=== PATIENT | female | born 1990 | race Caucasian/White ===

== ENCOUNTER 2017-05-21 13:25 | Outpatient (CLI) ==
[2012-12-28 18:18] VITALS: TEMP 98.7
[2015-12-03 02:49] VITALS: BMI 16.0
[2017-05-21 13:35] LABS: BASOPHILS % (AUTO) 0.5 % (0.0-3.0); EOSINOPHILS # (AUTO) 0.1 K/ul (0.0-0.7); EOSINOPHILS % (AUTO) 1.4 % (0.0-7.0); HEMATOCRIT 38.9 % (37.0-47.0); HEMOGLOBIN 13.4 g/dl (12.0-16.0); IMMATURE GRANULOCYTE % (AUTO) 0.2 % (0.0-5.0); LYMPHOCYTES # (AUTO) 2.8 K/uL (0.60-3.4); LYMPHOCYTES % (AUTO) 32.5 (10.0-50.0); MEAN CORPUSCULAR HEMOGLOBIN 30.2 pg (27.0-31.0); MEAN CORPUSCULAR HGB CONC 34.4 (31.8-35.4); MEAN CORPUSCULAR VOLUME 87.6 fl (81.0-99.0); MONOCYTES # (AUTO) 0.6 K/uL (0.4-2.0); MONOCYTES % (AUTO) 7.1 (0-10); NEUTROPHILS % (AUTO) 58.3; PLATELET COUNT 179 10^3/uL (140-440); RED BLOOD COUNT 4.44 10^6/ul (4.20-5.40); WHITE BLOOD COUNT 8.51 K/ul (4.6-10.2)
[2017-05-21 13:45] LABS: BILIRUBIN,URINE Negative (NEGATIVE); KETONES,URINE Negative (NEGATIVE); LEUKOCYTE ESTERASE ,URINE Negative (NEGATIVE); NITRITE,URINE Negative (NEGATIVE); PH,URINE 5.5 (5-9); PROTEIN,URINE 1+ (NEGATIVE); URINE, BLOOD 3+ (NEGATIVE)
[2017-05-21 13:48] LABS: ADD URINE MICROSCOPIC YES
[2017-05-21 13:54] LABS: BACTERIA,URINE TRACE (NOT PRESENT)
[2017-05-21 14:12] LABS: COCAIN SCREEN,URINE NEGATIVE (NEGATIVE)
[2017-05-21 19:12] LABS: ALBUMIN 4.1 g/dL (3.4-5.0); ALBUMIN/GLOBULIN RATIO 1.41; ANION GAP 14.8; BILIRUBIN,TOTAL 0.45 mg/dL (0.00-1.20); BUN/CREATININE RATIO 11.53; CALCIUM 9.4 mg/dL (8.2-10.2); CREATININE 0.78 mg/dL (0.60-1.30); POTASSIUM 3.8 mmol/L (3.5-5.10)
== END 2017-05-21 13:26 | disposition home or self-care (01) ==
LOC: LAB 13:25
PROVIDERS: ATTEND Nurse Practitioner Family
DX: F41.9 Anxiety disorder, unspecified (principal)
CPT/HCPCS: 36415; 80053; 80306; 81001; 84439; 84443; 85025

== ENCOUNTER 2017-06-23 18:14 | Emergency (ER) ==
[2017-06-23 18:21] VITALS: BP 102/71; TEMP 98.9; BMI 15.3
--- NOTE | 2017-06-23 18:44 | ED.PDOC ---
General Stated Complaint: abdominal pain, dysuria Time Seen by Physician: 18:42 (N,V, D, ABDOMINAL PAIN, FEVER AT THE ONSET ) Mode of Arrival: Walk-In Information Source: Patient Exam Limitations: No limitations Nursing and Triage Documentation Reviewed and Agree: Yes Reviewed sepsis parameters & appropriate labs ordered?: Yes <LATIA PALMER - Last Filed: 06/23/17 18:46> System Inflammatory Response Syndrome: Not Applicable <ALEJANDRO LILLY - Last Filed: 06/23/17 19:47> ED Provider: Dr. ALEJANDRO LILLY Chief Complaint: Abdominal Pain Primary Care Provider: ALEJANDRO LILLY-[facility] Sepsis Protocol: For patient's 13 years and over: Temp is 96.8 and below OR 101 and greater Pulse >90 BPM Resp >20/minute Acutely Altered Mental Status Are patient's symptoms suggestive of a new infection, such as: -Pneumonia -Skin, Soft Tissue -Endocarditis -UTI -Bone, Joint Infection -Implantable Device -Acute Abdominal Infection -Wound Infection -Meningitis -Blood Stream Catheter Infection -Unknown GI Complaint Exam - Abdominal Pain Complaint/Exam Onset: Gradual Duration: 3 DAYS Symptoms Are: Still present Timing: Constant Initial Severity: Moderate Current Severity: Moderate Location of Pain: Diffuse, Suprapubic Character: Reports: Aching Aggravating: Reports: None Alleviating: Reports: None Associated Signs and Symptoms: Reports: Fever, Cough, Back pain, Dysuria, Decreased urine output, Decreased appetite, Decreased activity. Denies: Diaphoresis, Chest pain, Dizziness, Constipation, Blood in stool, Urinary frequency, Vaginal bleeding, Vaginal discharge, Nausea, Vomiting, Diarrhea, Sore throat AAA Risk Factors: Reports: None Cardiac Risk Factors: Reports: None Ectopic Risk Factors: Reports: None Ovarian Torsion Risk Factors: Reports: Reproductive age Surgical Obstruction Risk Factors: Reports: None Related Surgical History: Reports: None Patient Rh Status: Unknown Abdominal Findings: Present: None Differential Diagnoses: Bowel Obstruction, Constipation, Diverticulitis, Gastroenteritis, UTI <LATIA PALMER - Last Filed: 06/23/17 18:46> Review of Systems - Review Of Systems Constitutional: Reports: Chills, Malaise, Weakness Eyes: Reports: No symptoms Ears, Nose, Mouth, Throat: Reports: No symptoms Respiratory: Reports: Cough Cardiac: Reports: No symptoms GI: Reports: Abdominal pain, Diarrhea, Nausea, Vomiting : Reports: Dysuria, Flank pain Musculoskeletal: Reports: No symptoms Skin: Reports: No symptoms Neurological: Reports: No symptoms Endocrine: Reports: No symptoms Hematologic/Lymphatic: Reports: No symptoms All Other Systems: Reviewed and Negative <LATIA PALMER Last Filed: 06/23/17 18:46> Past Medical History - Past Medical History Previously Healthy: Yes Endocrine: Reports: None Cardiovascular: Reports: None Respiratory: Reports: None Hematological: Reports: None Gastrointestinal: Reports: None Genitourinary: Reports: None Neuro/Psych: Reports: None Musculoskeletal: Reports: None Cancer: Reports: None Last Menstrual Period: now - Surgical History General Surgical History: Reports: Unknown - Family History Family History: Reports: Unknown - Social History Smoking Status: Current every day smoker, Light tobacco smoker Hx Substance Use: No Alcohol Screening: Occasionally <LATIA PALMER Last Filed: 06/23/17 18:46> Physical Exam - Physical Exam Appearance: Ill-appearing Ill-appearing: Moderate Pain Distress: Moderate Eyes: KWAME, EOMI, Conjunctiva clear ENT: Ears normal, Nose normal, Oropharynx normal Respiratory: Airway patent, Breath sounds clear, Breath sounds equal, Respirations nonlabored Cardiovascular: RRR, Pulses normal, No rub, No murmur GI/: Tender (DIFFUSE ) Musculoskeletal: Normal strength, ROM intact, No edema, No calf tenderness Skin: Warm, Dry, Normal color Neurological: Sensation intact, Motor intact, Reflexes intact, Cranial nerves intact, Alert, Oriented Psychiatric: Affect appropriate, Mood appropriate <LATIA PALMER Last Filed: 06/23/17 18:46> Interpretation - Radiology Interpretation Radiology Interpretation By: Radiologist Radiology Results: Negative Exam Interpreted: CT Scan <ALEJANDRO LILLY - Last Filed: 06/23/17 19:47> Physician Notification - Case Discussed Physician Notified: [id number] Time of Notification: 18:44 <LATIA PALMER Last Filed: 06/23/17 18:46> Critical Care Note - Critical Care Note Total Time (mins): 0 <LATIA PALMER Last Filed: 06/23/17 18:46> Course - Course Hematology/Chemistry: 06/23/17 18:55 06/23/17 18:55 <ALEJANDRO LILLY - Last Filed: 06/23/17 19:47> - Course Orders, Labs, Meds: Lab Review 06/23/17 06/23/17 06/23/17 18:30 18:30 18:55 WBC 12.13 H RBC 4.67 Hgb 14.0 Hct 40.4 MCV 86.5 MCH 30.0 MCHC 34.7 RDW Coeff of Cindy 12.0 Plt Count 194 Immature Gran % (Auto) 0.2 Neut % (Auto) 83.8 Lymph % (Auto) 9.2 L [place] % (Auto) 6.3 Eos % (Auto) 0.3 Baso % (Auto) 0.2 Immature Gran # (Auto) 0.0 Neut # 10.2 H Lymph # 1.1 [place] # 0.8 Eos # 0.0 Baso # 0.0 Sodium Potassium Chloride Carbon Dioxide Anion Gap BUN Creatinine Estimated GFR (MDRD) BUN/Creatinine Ratio Glucose Calcium Total Bilirubin AST ALT Alkaline Phosphatase Total Protein Albumin Globulin Albumin/Globulin Ratio Urine Color Yellow Urine Clarity Turbid Urine pH 6.0 Ur Specific [place] >=1.030 Urine Protein 1+ Urine Glucose (UA) Negative Urine Ketones Trace Urine Blood 2+ Urine Nitrite Negative Urine Bilirubin 1+ Urine Urobilinogen 0.2 Ur Leukocyte Esterase Negative Ur Squamous Epith Cells Not present Amorphous Sediment 4+ Urine Bacteria 3+ Urine Test Negative Influenza A (Rapid) Influenza B (Rapid) 06/23/17 06/23/17 18:55 19:10 WBC RBC Hgb Hct MCV MCH MCHC RDW Coeff of Cindy Plt Count Immature Gran % (Auto) Neut % (Auto) Lymph % (Auto) [place] % (Auto) Eos % (Auto) Baso % (Auto) Immature Gran # (Auto) Neut # Lymph # [place] # Eos # Baso # Sodium 140 Potassium 3.5 Chloride 105 Carbon Dioxide 27 Anion Gap 11.5 BUN 7 Creatinine 0.75 Estimated GFR (MDRD) 92.00 BUN/Creatinine Ratio 9.33 Glucose 111 H Calcium 9.1 Total Bilirubin < 0.3 AST 13 L ALT 11 L Alkaline Phosphatase 63 Total Protein 7.0 Albumin 3.5 Globulin 3.5 Albumin/Globulin Ratio 1.00 Urine Color Urine Clarity Urine pH Ur Specific [place] Urine Protein Urine Glucose (UA) Urine Ketones Urine Blood Urine Nitrite Urine Bilirubin Urine Urobilinogen Ur Leukocyte Esterase Ur Squamous Epith Cells Amorphous Sediment Urine Bacteria Urine Test Influenza A (Rapid) Negative by naat Influenza B (Rapid) Negative by naat Orders Category Date Time Status CBC W/ AUTO DIFF Stat LAB 06/23/17 18:55 Completed COMPREHENSIVE METABOLIC PANEL Stat LAB 06/23/17 18:55 Completed RAPID FLU A/B Stat LAB 06/23/17 19:10 Completed STREP SCREEN Stat LAB 06/23/17 19:10 Ordered URINALYSIS C & S IF INDICATED Stat LAB 06/23/17 18:30 Completed URINE CULTURE Stat LAB 06/23/17 18:30 Received URINE Stat LAB 06/23/17 18:30 Completed Ceftriaxone Sodium [Rocephin] MEDS 06/23/17 19:45 Stat 1 gm IM ONCE STA Ketorolac Tromethamine [Toradol] MEDS 06/23/17 19:45 Stat 30 mg IM ONCE STA Lidocaine HCl/Pf [Lidocaine HCl 1% Sdv] MEDS 06/23/17 19:45 Stat 5 ml SUBCUT ONCE STA CT ABDOMEN/PELVIS WO CONTRAST Stat RADS 06/23/17 18:[address] CHEST W/O CONTRAST Stat RADS 06/23/17 18:46 Completed Medications Generic Name Dose Route Start Last Admin Trade Name Freq PRN Reason Stop Dose Admin Ceftriaxone Sodium 1 gm 06/23/17 19:45 Rocephin IM 06/23/17 19:46 ONCE STA Ketorolac Tromethamine 30 mg 06/23/17 19:45 Toradol IM 06/23/17 19:46 ONCE STA Lidocaine HCl 5 ml 06/23/17 19:45 Lidocaine Hcl 1% Sdv SUBCUT 06/23/17 19:46 ONCE STA Vital Signs: Temp Pulse Resp BP Pulse Ox 06/23/17 18:15 98.9 F 128 H 20 102/71 96 Departure - Departure Pt referred to PMD for follow-up: Yes Disposition Discussed With: Patient <LATIA PALMER - Last Filed: 06/23/17 18:46> - Departure Time of Disposition: 19:46 <ALEJANDRO LILLY - Last Filed: 06/23/17 19:47> - Departure Disposition: HOME SELF-CARE Discharge Problem: Abdominal pain UTI (urinary tract infection) Qualifiers: Urinary tract infection type: acute cystitis Hematuria presence: with hematuria Qualified Code(s): N30.01 - Acute cystitis with hematuria Instructions: Abdominal Pain (ED) Condition: Good Additional Instructions: Please call your Family Physician as soon as possible to schedule a follow-up appointment.Please call your Family Physician as soon as possible to schedule a follow-up appointment. Increase Hydration Probiotics Prescriptions: Sulfamethoxazole/Trimethoprim [Bactrim Ds 800/160 mg] 1 tab PO Q12HR #14 tablet Allergies/Adverse Reactions: Allergies No Known Drug Allergies Adverse Reaction (Verified 06/23/17 18:22) Home Medications: Ambulatory Orders Sulfamethoxazole/Trimethoprim [Bactrim Ds 800/160 mg] 1 tab PO Q12HR #14 tablet 06/23/17
--- NOTE | 2017-06-23 19:22 | CT ---
EXAM: CT abdomen pelvis without contrast HISTORY: Evaluate for pyelonephritis COMPARISON: None TECHNIQUE: Serial axial images of the abdomen pelvis were performed from the lung bases through the inferior pelvis without contrast. These were viewed in multiple planes. FINDINGS: The lung bases are clear. Evaluation is limited due to lack of contrast. There is no hydronephrosis or hydroureter. Evaluatio n of the kidneys is limited due to lack of contrast. Urinary bladder contains minimal amount of urin e. The liver that is unremarkable. The spleen is normal. The gallbladder is minimally distended. The adrenal glands are unremarkable. The pancreas is unremarkable. Stomach is minimally distended. Evaluation of the abdomen and pelvis of the bowel is limited due to lack of intra-abdominal fat. Sma ll bowel is unremarkable as visualized. The appendix is normal. The colon is unremarkable. The carlos meera is unremarkable. There is no free fluid or lymphadenopathy. The osseous structures are unremark able. IMPRESSION: The Very limited evaluation due to lack of intra-abdominal fat and IV contrast. 1. No evidence of pyelonephritis or obstructive uropathy. 2. The appendix contains gas and is normal in appearance.
--- NOTE | 2017-06-23 19:25 | CT ---
EXAM: CT chest without contrast HISTORY: Cough COMPARISON: None TECHNIQUE: Serial axial images of the chest were obtained from the lung apices to the upper abdomen without contrast. These were viewed in multiple planes. FINDINGS: The thyroid is normal. The visualized vessels are unremarkable without aneurysm or stenos is. The heart is normal in size without pericardial effusion. There are no pathologically enlarged mediastinal or hilar lymph nodes. There is no pneumothorax or pleural effusion. There is no consolidation, nodule or mass. There is c alcified granuloma in the right lower lobe. There is a ground-glass nodule in the left upper lobe on image 31 which measures 0.3 cm in diameter. The airways are patent. Limited views of the soft tissues in the upper abdomen are unremarkable. The osseous structures are unremarkable. IMPRESSION: The 1. No acute cardiopulmonary process or consolidation. 2. Ground-glass nodule in the left upper lobe may be postinflammatory. If further evaluation is cli nically indicated, follow-up CT may be obtained in 3-6 months.
[2017-06-23] MEDS ORDERED: LIDOCAINE HCL 1% SDV SUBCUT STA (19:45)
[2017-06-23] MEDS ORDERED: TORADOL IM STA (19:45)
[2017-06-23] MEDS ORDERED: ROCEPHIN IM STA (19:45)
== END 2017-06-23 20:25 | disposition home or self-care (01) ==
LOC: ED 18:14
DX: N30.01 Acute cystitis with hematuria (principal); F17.210 Nicotine dependence, cigarettes, uncomplicated
CPT/HCPCS: 36415; 80053; 81001; 81025; 85025; 87086; 87502; 87651; 87880; 96372; 99283

== ENCOUNTER 2017-08-09 12:09 | Outpatient (CLI) ==
[2012-12-28 18:18] VITALS: TEMP 98.7
--- NOTE | 2017-08-09 13:46 | DI ---
EXAM: LUMBAR SPINE 5 VIEWS HISTORY: Lower back pain FINDINGS: Compared to 11/12/2015. Redemonstration of subtle scoliosis convex to the left centered a t the mid spine. Incomplete union of the posterior elements upper sacral segment. Sacroiliac joints proper within normal limits. Oblique views reveal normal pars interarticularis structures. Lateral projections reveal mild reversal lordosis although no spondylolisthesis, fracture or loss of vertebr al body height. No degenerative disc or facet disease. IMPRESSION: Subtle scoliosis. 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 Mild reversal of the lumbar lordosis. Stable findings since previous exam.
== END 2017-08-09 12:10 | disposition home or self-care (01) ==
LOC: RAD 12:09
PROVIDERS: ATTEND Nurse Practitioner Family
DX: M54.5 Low back pain (principal)

== ENCOUNTER 2017-08-21 08:40 | Outpatient (RCR) ==
[2012-12-28 18:18] VITALS: TEMP 98.7
--- NOTE | 2017-08-23 08:21 | RS.OPPTEV2 ---
Date of Note: 08/21/17 Visit #: 1 Date of Evaluation: 08/21/17 Payer Source: Medicaid Surgery Performed?: No Treatment Diagnosis: lumbar back pain History of Condition/Mechanism of Injury:: pt states she has had a long hx of back pain. No diffinite injury noted. Prior Level of Function.....Patient was independent with: ADL's, Self Care, Work /Vocation, Caregiving, Ambulation/Mobility, Community Integration/Access Functional Limitations: Pushing, Pulling, Carrying, Standing, Bending, Squatting , Ambulation Current Subjective/complaints:: pt states that she works 2 jobs and has 3 children. States that pain has increased in last few weeks. Treatment Side (optional): N/A *Precautions: n/a Medical History Medical History Comments:: anxiety/depression Smoking Status: Current every day smoker Diagnostic Testing/Imaging:: x ray at [facility] 08/09/17 : subtle scoliosis , incomplete union of the posterior elements of the upper sacral segment. Mild reversal of lumbar lordosis. Hx Home Medications: flexeril, antiinflammatory(pt cant remember name) Patient's Goals: pt goal is to decrease pain in low back. Pain Assessment - Pain Description Pain Location: low back pain radiating into LLE Pain Description: Sharp, Aching Current Pain Intensity: 6-7/10 Functional Outcome Measure Oswestry LBP: 32 (64%) - G Codes & Severity Modifier G Codes & Modifier: n/a Source of G Code score: n/a Observation - Observation Inspection: winging B scapula, pt stands with decreased lumbar lordosis with pelvis posteriorly tiltled, valgus deformity of knees. Posture: Forward Head, Rounded Shoulders, Decreased Lumbar Lordosis, Posterior Pelvic Tilt, Scoliosis Handedness: Right Gait - Gait Pattern General Gait Pattern Observation: No Deviations/Normal General Range of Motion: ROM WFL's Muscle Strength: BUE grossly 5/5. RLE hip flex 4/5, knee flex/ext 5/5 ankle DF/ PF 5/5. LLE hip flex 4+/5, knee flex/ext 5/5, ankle DF/pf 5/5 - ROM Lumbar Flexion: Fingertips to floor Sidebending to Left: Reach to Lateral Joint Line Sidebending to Right: Reach to Mid-thigh Lumbar Spine ROM Limitations: Soft Tissue Tightness, Muscle Weakness, Pain Comments: pt with increased pain with lat flexion as well as increased pain with lumbar ext - Strength Trunk Extension: 4 Good Trunk Flexion: 4 Good Trunk Lateral Flexion: 4- Good- Trunk Rotation: 4- Good- - Special Tests Seated Dural Stretch Test: Negative Right, Positive Left SI Joint Compression: Positive Palpation Palpation Findings: Tenderness, Trigger Point Comments:: trigger point noted above L SI joint, tenderness in lumbar area. pt with hamstring tightness L worse than R, L piriformis tightness Sensation - Sensation Right Upper Extremity: Intact/Normal Left Upper Extremity: Intact/Normal Right Lower Extremity: Intact/Normal Left Lower Extremity: Impaired Comments: n/t LLE, occasional n/t B hands Balance - Sitting Balance Static Sitting Balance: Normal Dynamic Sitting Balance: Normal - Standing Balance Static Standing Balance: Normal Dynamic Standing Balance: Normal - Treatment Modality: Electrical Stim Unattended Parameters/Method Applied: IFC x 20 mins at 10ma Treatment Area: L Lumbosacral area Patient Position: Right Sidelying - Heat/Cryotherapy Treatment: Cryotherapy Comments:: lumbosacral area Interventions - Exercise/Activities/Manual Therapy Exercises/Activities: pt performed pelvic tilts, hamstring stretches, piriformis stretches, pillow squeezes, Manual Therapy: n/a HOME EXERCISE PROGRAM: pt given written HEP including: pelvic tilts, pillow squeeze, resisted hip flex, hamstring stretch, piriformis stretch - Charges Timed Code Treatment Minutes: 48 Total Treatment Time: 65 Procedures billed for this date of service:: eval low, IFC unattended, cold pack EVALUATION COMPLEXITY LEVEL EVALUATION COMPLEXITY LEVEL: HISTORY: Low (LBP), EXAM OF BODY SYSTEMS: Medium ( musculoskeletal), CLINICAL PRESENTATION: Low (stable), CLINICAL DECISION MAKING : Low Assessment Assessment: pt presents with LBP in area of L SI joint, with radiating into LLE. pt with increased hamstring tightness on the L as well as piriformis tightness. pt also presents with numbness and tingling LLE. pt also presents with postural changes with increased thoracic kyphosis and decreased lumbar lordosis. Patient Education: Home Exercise Program, Education of Plan of Care Rehab Potential: Good Short Term Goals Goal #1: pt rate pain < 5/10 lumbosacral area Goal to be met by: 09/04/17 Goal #2: pt with decreased hamstring tightness on L Goal to be met by: 09/04/17 Longterm Goals Goal #1: pt with pain <3/10 with activity lumbosacral area Goal to be met by: 09/18/17 Goal #2: pt independent with HEP Goal to be met by: 09/18/17 Goal #3: pt with decreased muscle tightness to equal BLE Goal to be met by: 09/18/17 Goal #4: report ability to return normal work/household activities w decreased pain Goal to be met by: 09/18/17 Plan - Treatment to be Provided Procedures: Therapeutic Exercises, Therapeutic Activity, Manual Therapy, Massage , Patient Education Modalities: Electrical Stimulation, Ultrasound/Phonophoresis, Class IV Laser, Cryotherapy, Hot Packs - Treatment Plan Frequency: 2 X week Duration: 4 weeks ORDER # VISITS AND/OR THROUGH DATE: 09/18/17 - Treatment Code (1) Low back pain Code(s): M54.5 - LOW BACK PAIN Qualifiers: Chronicity: acute Back pain laterality: left Sciatica presence: with sciatica Sciatica laterality: sciatica of left side Qualified Code(s): M54.42 - Lumbago with sciatica, left side (2) Muscle tightness Code(s): M62.89 - OTHER SPECIFIED DISORDERS OF MUSCLE (3) Muscle weakness Code(s): M62.81 - MUSCLE WEAKNESS (GENERALIZED)
--- NOTE | 2017-08-27 10:45 | RS.CXNS ---
Date of scheduled appointment: 08/27/17 Type: No Show
--- NOTE | 2017-08-27 13:17 | RS.CXNS ---
Date of scheduled appointment: 08/27/17 Type: No Show
== END 2017-08-28 ==
PROVIDERS: ATTEND Nurse Practitioner Family
DX: M54.5 Low back pain (principal)

== ENCOUNTER 2017-10-07 21:19 | Emergency (ER) ==
[2017-10-07 21:32] VITALS: BP 128/74; TEMP 97.6; BMI 15.7
--- NOTE | 2017-10-07 22:34 | CT ---
EXAM: CT abdomen pelvis without intravenous contrast 10/07/2017. Sagittal and coronal reformatted i mages obtained HISTORY: Abdominal pain COMPARISON: 06/23/2017 FINDINGS: The liver, gallbladder, adrenal glands and kidneys show no acute abnormality. No urinary obstruction. The spleen shows no acute abnormality of the pancreas is not well visualized. No bowel obstruction. Partially visualized appendix appears within normal limits. Trace free fluid within the dependent a spect of the pelvis. Tampon is in place. IMPRESSION: 1. No urinary or bowel obstruction 2. Partially visualized appendix within normal limits 3. Tampon place 4. Trace free fluid in the pelvis. 5. Technically limited examination due to the lack of intravenous contrast.
[2017-10-07] MEDS ORDERED: CITRATE OF MAGNESIA PO STA (23:25)
[2017-10-07] MEDS ORDERED: K-DUR PO STA (23:25)
--- NOTE | 2017-10-07 23:28 | ED.PDOC ---
General ED Provider: Dr. BELIA OBANDO-ER Chief Complaint: Abdominal Pain Stated Complaint: im constipated Time Seen by Physician: 21:25 Mode of Arrival: Walk-In Information Source: Patient Exam Limitations: No limitations Primary Care Provider: LAURA HELLER Nursing and Triage Documentation Reviewed and Agree: Yes Reviewed sepsis parameters & appropriate labs ordered?: Yes System Inflammatory Response Syndrome: Not Applicable Sepsis Protocol: For patient's 13 years and over: Temp is 96.8 and below OR 101 and greater Pulse >90 BPM Resp >20/minute Acutely Altered Mental Status Are patient's symptoms suggestive of a new infection, such as: -Pneumonia -Skin, Soft Tissue -Endocarditis -UTI -Bone, Joint Infection -Implantable Device -Acute Abdominal Infection -Wound Infection -Meningitis -Blood Stream Catheter Infection -Unknown GI Complaint Exam - Abdominal Pain Complaint/Exam Onset: Gradual Duration: several hours Symptoms Are: Still present Timing: Constant Initial Severity: Mild Current Severity: Mild Location of Pain: Diffuse Character: Reports: Dull, Aching Alleviating: Reports: None Associated Signs and Symptoms: Reports: Constipation Differential Diagnoses: Constipation Review of Systems - Review Of Systems Constitutional: Reports: No symptoms Eyes: Reports: No symptoms Ears, Nose, Mouth, Throat: Reports: No symptoms Respiratory: Reports: No symptoms Cardiac: Reports: No symptoms GI: Reports: Abdominal pain, Constipated : Reports: No symptoms Musculoskeletal: Reports: No symptoms Skin: Reports: No symptoms Neurological: Reports: No symptoms Endocrine: Reports: No symptoms Hematologic/Lymphatic: Reports: No symptoms All Other Systems: Reviewed and Negative Past Medical History - Past Medical History Previously Healthy: Yes Endocrine: Reports: None Cardiovascular: Reports: None Respiratory: Reports: None Hematological: Reports: None Gastrointestinal: Reports: None Genitourinary: Reports: None Neuro/Psych: Reports: None Musculoskeletal: Reports: None Cancer: Reports: None Last Menstrual Period: last week of august, - Surgical History General Surgical History: Reports: Unknown - Family History Family History: Reports: Unknown - Social History Smoking Status: Current every day smoker, Light tobacco smoker Hx Substance Use: No Alcohol Screening: Occasionally - Immunizations Tetanus Shot up to Date: Yes Physical Exam - Physical Exam Appearance: Well-appearing Eyes: KWAME, EOMI, Conjunctiva clear ENT: Ears normal, Nose normal, Oropharynx normal Neck: Supple Respiratory: Airway patent, Breath sounds clear, Breath sounds equal, Respirations nonlabored Cardiovascular: RRR GI/: Soft, Nontender, No masses, Bowel sounds normal, No Organomegaly Musculoskeletal: Normal strength Skin: Warm Neurological: Sensation intact Psychiatric: Affect appropriate, Mood appropriate Interpretation - Radiology Interpretation Radiology Interpretation By: Radiologist Radiology Results: Negative Exam Interpreted: CT Scan Critical Care Note - Critical Care Note Total Time (mins): 0 Course - Course Hematology/Chemistry: 10/07/17 21:50 10/07/17 21:50 Orders, Labs, Meds: Lab Review 10/07/17 10/07/17 10/07/17 21:50 21:50 21:50 WBC 10.15 RBC 4.09 L Hgb 12.1 Hct 35.1 L MCV 85.8 MCH 29.6 MCHC 34.5 RDW Coeff of Cindy 12.3 Plt Count 188 Immature Gran % (Auto) 0.2 Neut % (Auto) 57.1 Lymph % (Auto) 33.4 [place] % (Auto) 8.0 Eos % (Auto) 0.8 Baso % (Auto) 0.5 Immature Gran # (Auto) 0.0 Neut # (Auto) 5.8 Lymph # (Auto) 3.4 [place] # (Auto) 0.8 Eos # (Auto) 0.1 Baso # (Auto) 0.1 ESR 2 Sodium 138 Potassium 3.2 L Chloride 106 Carbon Dioxide 24 Anion Gap 11.2 BUN 10 Creatinine 0.75 Estimated GFR (MDRD) 92.00 BUN/Creatinine Ratio 13.33 Glucose 68 L Calcium 8.7 Total Bilirubin 0.4 AST 11 L ALT 7 L Alkaline Phosphatase 45 Total Protein 6.4 Albumin 3.6 Globulin 2.8 Albumin/Globulin Ratio 1.29 Amylase 34 Lipase 10 Serum , Qual Negative Urine Color Urine Clarity Urine pH Ur Specific [place] Urine Protein Urine Glucose (UA) Urine Ketones Urine Blood Urine Nitrite Urine Bilirubin Urine Urobilinogen Ur Leukocyte Esterase Urine Microscopic RBC Ur Squamous Epith Cells Urine Bacteria Urine Mucus Urine Opiates Screen Ur Oxycodone Screen Urine Methadone Screen Ur Propoxyphene Screen Ur Barbiturates Screen U Tricyclic Antidepress Ur Phencyclidine Scrn Ur Amphetamine Screen U Methamphetamines Scrn U Benzodiazepines Scrn Urine Cocaine Screen U Cannabinoids Screen Influ A Molecular Assay Influ B Molecular Assay 10/07/17 10/07/17 10/07/17 21:52 21:55 21:55 WBC RBC Hgb Hct MCV MCH MCHC RDW Coeff of Cindy Plt Count Immature Gran % (Auto) Neut % (Auto) Lymph % (Auto) [place] % (Auto) Eos % (Auto) Baso % (Auto) Immature Gran # (Auto) Neut # (Auto) Lymph # (Auto) [place] # (Auto) Eos # (Auto) Baso # (Auto) ESR Sodium Potassium Chloride Carbon Dioxide Anion Gap BUN Creatinine Estimated GFR (MDRD) BUN/Creatinine Ratio Glucose Calcium Total Bilirubin AST ALT Alkaline Phosphatase Total Protein Albumin Globulin Albumin/Globulin Ratio Amylase Lipase Serum , Qual Urine Color Yellow Urine Clarity Slightly Urine pH 7.0 Ur Specific [place] 1.025 Urine Protein 1+ Urine Glucose (UA) Negative Urine Ketones Negative Urine Blood 2+ Urine Nitrite Negative Urine Bilirubin Negative Urine Urobilinogen 2.0 Ur Leukocyte Esterase Negative Urine Microscopic RBC 10-20 Ur Squamous Epith Cells 5-10 Urine Bacteria Trace Urine Mucus 2+ Urine Opiates Screen Negative Ur Oxycodone Screen Negative Urine Methadone Screen Negative Ur Propoxyphene Screen Negative Ur Barbiturates Screen Negative U Tricyclic Antidepress Negative Ur Phencyclidine Scrn Negative Ur Amphetamine Screen Negative U Methamphetamines Scrn Negative U Benzodiazepines Scrn Negative Urine Cocaine Screen Negative U Cannabinoids Screen Positive Influ A Molecular Assay Negative by naat Influ B Molecular Assay Negative by naat Orders Category Date Time Status AMYLASE Stat LAB 10/07/17 21:50 Completed CBC W/ AUTO DIFF Stat LAB 10/07/17 21:50 Completed COMPREHENSIVE METABOLIC PANEL Stat LAB 10/07/17 21:50 Completed ESR Stat LAB 10/07/17 21:50 Completed FLU A/B MOLECULAR Stat LAB 10/07/17 21:52 Completed LIPASE Stat LAB 10/07/17 21:50 Completed MOLECULAR GROUP A STREP Stat LAB 10/07/17 21:52 Completed SERUM Stat LAB 10/07/17 21:50 Completed URINALYSIS C & S IF INDICATED Stat LAB 10/07/17 21:55 Completed URINE DRUG SCREEN (RAPID FOR ED) [DRUG SCREEN, URINE, LAB 10/07/17 21:55 Completed RAPID] Stat Magnesium Citrate [Citrate of Magnesia] MEDS 10/07/17 23:25 Stat 10 oz PO ONCE STA Potassium Chloride [K-Dur] MEDS 10/07/17 23:25 Stat 40 meq PO ONCE STA CT ABDOMEN/PELVIS WO CONTRAST Stat RADS 10/07/17 21:25 Completed Vital Signs: Temp Pulse Resp BP Pulse Ox 10/07/17 21:22 97.6 F 92 H 20 128/74 99 Departure - Departure Time of Disposition: 23:28 Disposition: HOME SELF-CARE Discharge Problem: Hypokalemia Constipation Qualifiers: Constipation type: other constipation type Qualified Code(s): K59.09 - Other constipation Instructions: Constipation (ED) Condition: Good Pt referred to PMD for follow-up: Yes IPMP verified?: No Additional Instructions: f/u wtih pcp Allergies/Adverse Reactions: Allergies No Known Drug Allergies Adverse Reaction (Verified 10/07/17 21:31) Home Medications: Ambulatory Orders Amitriptyline HCl 10 mg PO BEDTIME 10/07/17 Disposition Discussed With: Patient
== END 2017-10-07 23:56 | disposition home or self-care (01) ==
LOC: ED 21:19
DX: E87.6 Hypokalemia (principal); K59.09 Other constipation; F17.210 Nicotine dependence, cigarettes, uncomplicated
CPT/HCPCS: 36415; 80053; 80306; 81001; 82150; 83690; 84703; 85025; 85651; 87502; 87651; 99283

== ENCOUNTER 2017-10-27 11:18 | Outpatient (CLI) ==
[2012-12-28 18:18] VITALS: TEMP 98.7
--- NOTE | 2017-10-27 12:02 | DI ---
EXAM: Four views of the thoracic spine. History: Thoracic spine pain. Findings: No acute fracture or subluxation. Disc space heights are preserved. No abnormal calcific ations or radiopaque foreign bodies. Impression: Unremarkable exam
--- NOTE | 2017-10-27 12:02 | DI ---
EXAM: Two views of the left hip. History: Left hip pain. Findings: No acute fracture or dislocation. The left hip joint space is preserved. No soft tissue foreign bodies. Impression: No acute osseous abnormality
--- NOTE | 2017-10-27 12:02 | DI ---
EXAM: Two views of the right hip. History: Right hip pain. Findings: No acute fracture or dislocation. The right hip joint space is preserved. No soft tissue radiopaque foreign bodies. Impression: No acute osseous abnormality
--- NOTE | 2017-10-27 12:03 | DI ---
EXAM: Five views of the cervical spine. History: Cervicalgia and headache. Findings: No acute fracture or subluxation of the cervical spine. No prevertebral soft tissue swell ing. Predental space is not widened. Disc space heights are preserved. The oblique images demonstr ate no significant bony neural foraminal narrowing. Impression: Unremarkable exam
== END 2017-10-27 11:19 | disposition home or self-care (01) ==
LOC: RAD 11:18
PROVIDERS: ATTEND Pain Medicine Interventional Pain Medicine
DX: M54.2 Cervicalgia (principal); M46.1 Sacroiliitis, not elsewhere classified; M54.6 Pain in thoracic spine; M25.551 Pain in right hip; M25.552 Pain in left hip

== ENCOUNTER 2017-11-02 03:14 | Emergency (ER) ==
[2017-11-02] MEDS ORDERED: SODIUM CHLORIDE 1,000 ML IV STA (03:18)
[2017-11-02 03:21] VITALS: BP 124/89; TEMP 96.7; BMI 17.4
--- NOTE | 2017-11-02 04:10 | CT ---
EXAM: CT brain without contrast HISTORY: Mental status change TECHNIQUE: CT of the brain without intravenous contrast FINDINGS: There is no acute hemorrhage midline shift or mass effect. No hydrocephalus or abnormal e xtra-axial fluid collection. No significant parenchymal attenuation abnormality. The bony cranium a ppears normal. The visualized paranasal sinuses are clear. Soft tissues without significant abnormali ty. IMPRESSION: 1. CT of the brain within normal limits.
--- NOTE | 2017-11-02 04:12 | DI ---
EXAM: Chest, one-view HISTORY: Mental status change FINDINGS: Cardiac and mediastinal contours are normal. Pulmonary vasculature is normal. Lungs are clear. Bony thorax is unremarkable. IMPRESSION: Within normal limits
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
== END 2017-11-02 04:10 | disposition left against medical advice (07) ==
LOC: ED 03:14
DX: T65.91XA Toxic effect of unspecified substance, accidental (unintentional), initial encounter (principal); R41.0 Disorientation, unspecified; R00.0 Tachycardia, unspecified; F17.210 Nicotine dependence, cigarettes, uncomplicated; Y92.89 Other specified places as the place of occurrence of the external cause
CPT/HCPCS: 36415; 80053; 80307; 82803; 84703; 85025; 93005; 93010; 96360; 99285

== ENCOUNTER 2017-12-30 19:28 | Emergency (ER) ==
[2017-12-30 19:39] VITALS: BP 113/71; TEMP 98.6; BMI 16.0
--- NOTE | 2017-12-30 20:13 | ED.PDOC ---
General ED Provider: Dr. GENE BARAHONA Chief Complaint: Neck Pain Non-Injury Stated Complaint: Patient is a 27 year old female who comes to the ER with a 10 day history of left neck pain. 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 Has been working alot of hours. Time Seen by Physician: 20:11 Mode of Arrival: Walk-In Information Source: Patient Exam Limitations: No limitations Primary Care Provider: LAURA ROSE Nursing and Triage Documentation Reviewed and Agree: Yes Does patient meet sepsis criteria?: Yes If yes, has appropriate treatment been initiated?: No Sepsis Protocol: For patient's 13 years and over: Temp is 96.8 and below OR 101 and greater Pulse >90 BPM Resp >20/minute Acutely Altered Mental Status Are patient's symptoms suggestive of a new infection, such as: -Pneumonia -Skin, Soft Tissue -Endocarditis -UTI -Bone, Joint Infection -Implantable Device -Acute Abdominal Infection -Wound Infection -Meningitis -Blood Stream Catheter Infection -Unknown Review of Systems - Review Of Systems Constitutional: Reports: No symptoms Eyes: Reports: No symptoms Ears, Nose, Mouth, Throat: Reports: No symptoms Respiratory: Reports: No symptoms Cardiac: Reports: No symptoms GI: Reports: No symptoms : Reports: No symptoms Musculoskeletal: Reports: Neck pain Skin: Reports: No symptoms Neurological: Reports: No symptoms Endocrine: Reports: No symptoms Hematologic/Lymphatic: Reports: No symptoms All Other Systems: Reviewed and Negative Past Medical History - Past Medical History Previously Healthy: Yes Endocrine: Reports: None Cardiovascular: Reports: Other (heart palpatations) Respiratory: Reports: None Hematological: Reports: None Gastrointestinal: Reports: None Genitourinary: Reports: None Neuro/Psych: Reports: None, Anxiety, Depression Musculoskeletal: Reports: Back Pain Cancer: Reports: None Last Menstrual Period: [id number] - Surgical History General Surgical History: Reports: Unknown - Family History Family History: Reports: Unknown - Social History Smoking Status: Current every day smoker, Light tobacco smoker Hx Substance Use: No Alcohol Screening: Occasionally - Immunizations Tetanus Shot up to Date: No Critical Care Note - Critical Care Note Total Time (mins): 0 Course - Course Vital Signs: Temp Pulse Resp BP Pulse Ox 12/30/17 19:35 98.6 F 88 18 113/71 98 Departure - Departure Time of Disposition: 20:12 Disposition: HOME SELF-CARE Discharge Problem: Neck muscle spasm Instructions: Cervical Strain (DC) Condition: Stable Pt referred to PMD for follow-up: Yes IPMP verified?: Yes (no Hits on ) Additional Instructions: Take medications as prescribed Follow up with PCP in 3 days Use ICE or heat to area May use over the counter bengay rub twice a day. Prescriptions: Cyclobenzaprine HCl [Flexeril] 10 mg PO DAILY PRN #20 tablet PRN Reason: spasms Naproxen 500 mg PO BID #30 tablet Allergies/Adverse Reactions: Allergies No Known Drug Allergies Adverse Reaction (Verified 12/30/17 19:39) Home Medications: Ambulatory Orders Amitriptyline HCl 10 mg PO BEDTIME 10/07/17 Cyclobenzaprine HCl [Flexeril] 10 mg PO DAILY PRN #20 tablet 12/30/17 Naproxen 500 mg PO BID #30 tablet 12/30/17 Disposition Discussed With: Patient
--- NOTE | 2017-12-30 20:48 | ED.PDOC ---
General ED Provider: Dr. GENE BARAHONA Chief Complaint: Neck Pain Non-Injury Stated Complaint: Patient is a 27 year old female who comes to the ER with a 10 day history of left neck pain. 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 Has been working alot of hours. Time Seen by Physician: 20:00 Mode of Arrival: Walk-In Information Source: Patient Primary Care Provider: LAURA ROSE Nursing and Triage Documentation Reviewed and Agree: Yes Does patient meet sepsis criteria?: No System Inflammatory Response Syndrome: Not Applicable Sepsis Protocol: For patient's 13 years and over: Temp is 96.8 and below OR 101 and greater Pulse >90 BPM Resp >20/minute Acutely Altered Mental Status Are patient's symptoms suggestive of a new infection, such as: -Pneumonia -Skin, Soft Tissue -Endocarditis -UTI -Bone, Joint Infection -Implantable Device -Acute Abdominal Infection -Wound Infection -Meningitis -Blood Stream Catheter Infection -Unknown Musculoskeletal Complaint Exam - Neck Pain Complaint/Exam Mechanism of Injury: Reports: No known trauma Onset/Duration: 10 days Symptoms Are: Still present Timing: Constant Current Severity: Moderate Location: Reports: Discrete (left base of neck to base of skull ) Character: Reports: Throbbing, Spasmodic Aggravating: Reports: Movement Alleviating: Reports: Ice Associated Signs and Symptoms: Reports: Nuchal rigidity Meningitis Risk Factors: Reports: None Cervical Spine Injury Risk Factors: Reports: None Related Surgical History: Reports: None Carotid Bruit Present: No Pain on Passive Flexion: No Positive Kernig's Sign: No ROM Limited In: Present: Extension Tenderness: Present: Paraspinal Focal Weakness: Present: None Focal Sensory Loss: Reports: None Neck Picture: 1 - spasms 2 - spasms Differential Diagnoses: Sprain, Strain, Torticollis Review of Systems - Review Of Systems Constitutional: Reports: No symptoms Eyes: Reports: No symptoms Ears, Nose, Mouth, Throat: Reports: No symptoms Respiratory: Reports: No symptoms Cardiac: Reports: No symptoms GI: Reports: No symptoms : Reports: No symptoms Musculoskeletal: Reports: Muscle pain, Muscle stiffness, Neck pain Skin: Reports: No symptoms Neurological: Reports: No symptoms Endocrine: Reports: No symptoms Hematologic/Lymphatic: Reports: No symptoms All Other Systems: Reviewed and Negative Past Medical History - Past Medical History Previously Healthy: Yes Endocrine: Reports: None Cardiovascular: Reports: Other (heart palpatations) Respiratory: Reports: None Hematological: Reports: None Gastrointestinal: Reports: None Genitourinary: Reports: None Neuro/Psych: Reports: Anxiety, Depression Musculoskeletal: Reports: None Cancer: Reports: None Last Menstrual Period: [id number] - Surgical History General Surgical History: Reports: Other (D and C) - Family History Family History: Reports: Unknown - Social History Smoking Status: Current every day smoker, Light tobacco smoker Hx Substance Use: No Alcohol Screening: Occasionally - Immunizations Tetanus Shot up to Date: No Physical Exam - Physical Exam Appearance: Thin Pain Distress: Moderate Neck: Supple Respiratory: Airway patent, Breath sounds clear, Breath sounds equal, Respirations nonlabored Cardiovascular: RRR, Pulses normal, No rub, No murmur Musculoskeletal: Limited ROM (on the left neck due to spasms ) Skin: Warm, Dry Neurological: Alert, Oriented Psychiatric: Anxious Critical Care Note - Critical Care Note Total Time (mins): 0 Course - Course Vital Signs: Temp Pulse Resp BP Pulse Ox 12/30/17 19:35 98.6 F 88 18 113/71 98 Departure - Departure Time of Disposition: 20:30 Disposition: HOME SELF-CARE Discharge Problem: Neck muscle spasm Instructions: Cervical Strain (DC) Condition: Stable Pt referred to PMD for follow-up: Yes IPMP verified?: No Additional Instructions: Take medications as prescribed Follow up with PCP in 3 days Use ICE or heat to area May use over the counter bengay rub twice a day. Prescriptions: Cyclobenzaprine HCl [Flexeril] 10 mg PO DAILY PRN #20 tablet PRN Reason: spasms Naproxen 500 mg PO BID #30 tablet Allergies/Adverse Reactions: Allergies No Known Drug Allergies Adverse Reaction (Verified 12/30/17 19:39) Home Medications: Ambulatory Orders Amitriptyline HCl 10 mg PO BEDTIME 10/07/17 Cyclobenzaprine HCl [Flexeril] 10 mg PO DAILY PRN #20 tablet 12/30/17 Naproxen 500 mg PO BID #30 tablet 12/30/17 Disposition Discussed With: Patient
== END 2017-12-30 20:30 | disposition home or self-care (01) ==
LOC: ED 19:28
DX: M62.838 Other muscle spasm (principal); M54.2 Cervicalgia; F17.210 Nicotine dependence, cigarettes, uncomplicated
CPT/HCPCS: 99282

== ENCOUNTER 2018-01-21 16:07 | Outpatient (CLI) ==
[2012-12-28 18:18] VITALS: TEMP 98.7
== END 2018-01-21 16:08 | disposition home or self-care (01) ==
LOC: RHC-LAB 16:07
PROVIDERS: ATTEND Emergency Medicine
DX: F41.9 Anxiety disorder, unspecified (principal); I83.93 Asymptomatic varicose veins of bilateral lower extremities; M54.5 Low back pain; R59.1 Generalized enlarged lymph nodes; R63.4 Abnormal weight loss
CPT/HCPCS: 36415; 80053; 84443; 85025

== ENCOUNTER 2018-01-22 12:06 | Outpatient (CLI) ==
[2012-12-28 18:18] VITALS: TEMP 98.7
--- NOTE | 2018-01-22 17:04 | US ---
EXAM: Ultrasound chest wall HISTORY: Generalized enlarged lymph nodes COMPARISON: None FINDINGS: Ultrasound chest wall was performed in the region of clinical concern, left lateral chest. In this region, there is a 0.2 x 0.8 x 1.2 cm normal appearing lymph node that retains its normal f atty hilum IMPRESSION: Normal appearing lymph node in the region of clinical concern.
== END 2018-01-22 12:07 | disposition home or self-care (01) ==
LOC: RAD 12:06
PROVIDERS: ATTEND Emergency Medicine
DX: R59.1 Generalized enlarged lymph nodes (principal)

== ENCOUNTER 2018-03-15 11:05 | Emergency (ER) ==
[2018-03-15 11:05] VITALS: BMI 16.0
[2018-03-15 11:14] VITALS: BP 107/71; TEMP 97.8
--- NOTE | 2018-03-15 12:00 | ED.PDOC ---
General ED Provider: Dr. GENE BARAHONA Chief Complaint: Respiratory Complaint Stated Complaint: Patient comes to the ER with a 3 day history of cough and conjestion. Time Seen by Physician: 11:00 Mode of Arrival: Walk-In Information Source: Patient Exam Limitations: No limitations Primary Care Provider[facility] Nursing and Triage Documentation Reviewed and Agree: Yes Does patient meet sepsis criteria?: No System Inflammatory Response Syndrome: Pulse >90 BPM, Not Applicable Sepsis Protocol: For patient's 13 years and over: Temp is 96.8 and below OR 101 and greater Pulse >90 BPM Resp >20/minute Acutely Altered Mental Status Are patient's symptoms suggestive of a new infection, such as: -Pneumonia -Skin, Soft Tissue -Endocarditis -UTI -Bone, Joint Infection -Implantable Device -Acute Abdominal Infection -Wound Infection -Meningitis -Blood Stream Catheter Infection -Unknown Review of Systems - Review Of Systems Constitutional: Reports: No symptoms Eyes: Reports: No symptoms Ears, Nose, Mouth, Throat: Reports: No symptoms Respiratory: Reports: Cough (conjestion ) Cardiac: Reports: No symptoms GI: Reports: No symptoms : Reports: No symptoms Musculoskeletal: Reports: No symptoms Skin: Reports: No symptoms Neurological: Reports: No symptoms Endocrine: Reports: No symptoms Hematologic/Lymphatic: Reports: No symptoms All Other Systems: Reviewed and Negative Past Medical History - Past Medical History Previously Healthy: Yes Endocrine: Reports: None Cardiovascular: Reports: Other (heart palpatations) Respiratory: Reports: None Hematological: Reports: None Gastrointestinal: Reports: None Genitourinary: Reports: None Neuro/Psych: Reports: Anxiety, Depression Musculoskeletal: Reports: None Cancer: Reports: None Last Menstrual Period: just finished last month - Surgical History General Surgical History: Reports: Other (D and C) - Family History Family History: Reports: Unknown - Social History Smoking Status: Current every day smoker, Light tobacco smoker Hx Substance Use: No Alcohol Screening: Occasionally Physical Exam - Physical Exam Appearance: Ill-appearing Ill-appearing: Mild Eyes: KWAME, EOMI, Conjunctiva clear ENT: Ears normal, Nose normal, Oropharynx normal Respiratory: Breath sounds diminished Cardiovascular: Tachycardia GI/: Soft, Nontender, No masses, Bowel sounds normal, No Organomegaly Musculoskeletal: Normal strength, ROM intact, No edema, No calf tenderness Skin: Warm, Dry, Normal color Neurological: Sensation intact, Motor intact, Reflexes intact, Cranial nerves intact, Alert, Oriented Psychiatric: Affect appropriate, Mood appropriate Critical Care Note - Critical Care Note Total Time (mins): 0 Course - Course Vital Signs: Temp Pulse Resp BP Pulse Ox 03/15/18 11:12 97.8 F 114 H 16 107/71 97 Departure - Departure Time of Disposition: 11:59 Disposition: HOME SELF-CARE Discharge Problem: Acute bronchitis Qualifiers: Bronchitis organism: other organism Qualified Code(s): J20.8 - Acute bronchitis due to other specified organisms Instructions: How to Stop Smoking (ED), Acute Bronchitis (ED) Condition: Stable Pt referred to PMD for follow-up: Yes IPMP verified?: No Additional Instructions: Take Medications as prescribed Follow up with PCP in 3 days Stop smoking Prescriptions: Azithromycin [Zithromax] 250 mg PO DIRECTED #6 tablet Benzonatate [Tessalon Perles] 100 mg PO TID PRN #25 capsule PRN Reason: Cold Symptons Allergies/Adverse Reactions: Allergies No Known Drug Allergies Adverse Reaction (Verified 03/15/18 11:11) Home Medications: Ambulatory Orders Cyclobenzaprine HCl [Flexeril] 10 mg PO DAILY PRN #20 tablet 12/30/17 Azithromycin [Zithromax] 250 mg PO DIRECTED #6 tablet 03/15/18 Benzonatate [Tessalon Perles] 100 mg PO TID PRN #25 capsule 03/15/18 Disposition Discussed With: Patient
== END 2018-03-15 12:10 | disposition home or self-care (01) ==
LOC: ED 11:05
DX: J20.9 Acute bronchitis, unspecified (principal); F17.210 Nicotine dependence, cigarettes, uncomplicated
CPT/HCPCS: 99282